=== PATIENT | female | born 1955 | race Caucasian/White ===

== ENCOUNTER 2018-01-14 05:30 | Day surgery (SDC) | payer OTHER ==
[~2018-01-14 05:30] MED LIST: AMLODIPINE BESYL5 MG PO; COZAAR100 MG PO; HYDROCHLOROTHIA25 MG PO; SYNTHROID50 MCG PO
== END 2018-01-14 18:01 | disposition home or self-care (01) ==
LOC: CIR.AMB 05:30
DX: N88.8 Other specified noninflammatory disorders of cervix uteri (principal)